=== PATIENT | male | born 1975 | race African-American/Black ===

== ENCOUNTER → 2018-11-06 16:23 | Outpatient (REF) | payer OTHER, SELFPAY ==
[2018-11-06 17:25] LABS: Body Fluid Red Blood Cells 1111 /uL; Body Fluid Tot Nucleated Cells 714 /uL
[2018-11-06 19:14] LABS: Body Fluid Color YELLOW
[2018-11-06 19:15] LABS: Body Fluid Appearance SLIGHTLY CLOUDY; Body Fluid Clotted? NO CLOTS PRESENT; Eosinophils Body Fluid 0 %; Mononuclear WBC Body Fluid 90 %; Polynuclear WBC Body Fluid 6 %
[2018-11-06 19:16] LABS: Other Cells Body Fluid 4 %
== END ==
LOC: LAB 16:23
PROVIDERS: Family Provider Pediatrics; PCP Pediatrics; Visit Provider Orthopaedic Surgery
DX: M22.41 Chondromalacia patellae, right knee (principal); R52 Pain, unspecified
CPT/HCPCS: 89051; 89060

== ENCOUNTER → 2018-11-19 15:33 | Outpatient (CLI) | payer OTHER, SELFPAY ==
--- NOTE | 2018-11-19 | DI.MRI.S_ITS ---
PROCEDURE: MR KNEE RT WO CON INDICATIONS: Chondromalacia patellae, right knee TECHNIQUE: Noncontrast sagittal PD fast spin echo and T2 fast spin echo with fat saturation, sagittal 3-D FLASH with fat saturation; coronal T1 spin echo and PD fast spin echo with fat saturation, and axial PD fast spin echo with fat saturation through the knee. COMPARISON: [facility], CR, XR KNEE ARTHRITIC SERIES BI, 11/06/2018, 14:04. FINDINGS: Image quality: Diagnostic. Bones and joint: There is no acute fracture or dislocation. No suspicious osseous lesions are evident. There is a moderate-sized knee joint effusion with associated very large Harrell's cyst. Edema about the distal margin of the Harrell's cyst is present. A large defect of the hyaline articular cartilage along the lateral patellar facet is present with underlying degenerative/reactive marrow changes. Additional thin heterogeneity and irregularity of the head articular cartilage is noted within the medial and lateral tibiofemoral compartments. Developing marginal osteophytes are noted within all 3 compartments. There is also spurring of the tibial spines and marginal osteophytes within the femoral notch. A prominent bone spur along the posterior margin of the posterior cruciate ligament appears to be arising from the posterior aspect of the medial tibial plateau. There is patella harry. Cruciate ligaments: The anterior and posterior cruciate ligaments are intact. Menisci: There is low-grade partial-thickness tearing identified involving the posterior root of the medial meniscus. Slight increased signal at the meniscocapsular junction at the junction of the body and posterior horn of the medial meniscus is present. The lateral meniscus is intact and otherwise unremarkable. Medial structures: The medial collateral ligament is intact. The semimembranosus tendon insertion is mildly edematous at its insertion The imaged portions of the pes anserinus tendons are unremarkable. A small amount of fluid is contained within the pes anserinus bursa. Lateral structures: The popliteal tendon is edematous and slightly thickened at its origin. The lateral collateral ligament proper (fibular collateral ligament) and the proximal tibiofibular ligaments are intact. The distal aspect of the biceps femoris tendon and the iliotibial band are intact. Anterior structures: The quadriceps and patellar tendons are intact. Mild increased signal involving the distal margin of the patellar tendon is present. There is edema within the prepatellar soft tissues. There is moderate edema noted within the superolateral aspect of the infrapatellar fat-pad. IMPRESSION: 1. Moderate to severe degenerative changes of the right knee are most pronounced within the patellofemoral compartment. Edema within it the soft tissues adjacent to the patellar tendon are suggestive of maltracking patella versus lateral femoral condyle-patellar tendon friction syndrome. 2. Moderate-sized knee joint effusion with an associated probable leaking Harrell cyst. 3. Low-grade partial-thickness tear of the posterior root of the medial meniscus. 4. Mild patellar tendinopathy. 5. Mild distal semimembranosus tendinopathy. 6. Mild proximal popliteal tendinopathy. 7. Minimal fluid within the pes anserinus bursa may be related to bursitis. Dictated by: Gutierrez Martel M.D. on 11/19/2018 at 16:07 Approved by: Gutierrez Martel M.D. on 11/19/2018 at 16:11
== END ==
PROVIDERS: Visit Provider Orthopaedic Surgery
DX: M22.41 Chondromalacia patellae, right knee (principal); M17.11 Unilateral primary osteoarthritis, right knee; M25.461 Effusion, right knee; M67.961 Unspecified disorder of synovium and tendon, right lower leg
CPT/HCPCS: 73721